=== PATIENT | female | born 1960 | race Caucasian/White ===

== ENCOUNTER 2019-03-13 11:19 | Outpatient (CLI) | payer OTHER ==
--- NOTE | 2019-03-13 11:51 | RAD ---
CHEST 2 VIEWS: Date: 03/13/19 HISTORY: Cough. Chest pain. FINDINGS: No comparison. Cardiac silhouette and pulmonary vasculature are unremarkable. Mediastinum is midline. No confluent a ir space consolidation, pneumothorax, or pleural fluid are evident. Left lateral costophrenic angle i s excluded from the image. IMPRESSION: No active cardiopulmonary abnormalities are demonstrated. POS: CET
== END 2019-03-13 11:20 | disposition home or self-care (01) ==
LOC: BICRAD 11:19
PROVIDERS: ATTEND Physician Assistant Medical
DX: K21.9 Gastro-esophageal reflux disease without esophagitis (principal); R05 Cough; K80.20 Calculus of gallbladder without cholecystitis without obstruction
CPT/HCPCS: 71046

== ENCOUNTER 2020-01-13 06:35 | Outpatient (CLI) | payer BC ==
[2020-01-13 17:23] LABS: #Eosinphils 0.1 thou/uL (0.0-0.7); #Lymphocytes 2.2 thou/uL (1.20-3.40); #Monocytes 0.8 thou/uL (0.11-0.59); #Neutrophils 10.4 thou/uL (1.40-6.50); %Basophils 0.2 % (0.0-1.0); %Eosinophils 0.7 % (0.0-10.0); %Lymphocytes 16.3 % (21.0-51.0); %Monocytes 5.9 % (0.0-10.0); %Neutrophils 77.1 % (42.0-75.0); Hemoglobin 13.2 g/dL (12.0-16.0); Mean Corpuscular HGB CONC 34.8 g/dL (32.0-36.0); Mean Corpuscular Hemoglobin 29.2 pg (27.0-31.0); Mean Corpuscular Volume 83.9 fL (78.0-98.0); Mean Platelet Volume 6.6 fL (7.4-10.4); Platelet Count 300 thou/uL (130-400); RBC Distribution Width 14.1 % (11.5-14.5); Red Blood Cell (RBC) Count 4.51 mill/uL (4.20-5.40); White Blood Cell (WBC) Count 13.5 thou/uL (4.8-10.8)
[2020-01-13 17:43] LABS: ALT (SGPT) 42 U/L (8-55); AST (SGOT) 28 U/L (5-34); Albumin 4.4 g/dL (3.5-5.0); Alkaline Phosphatase 58 U/L (40-110); Anion Gap 17 mmol/L (10-20); BUN (Urea Nitrogen) 17 mg/dL (9.8-20.1); Bilirubin, Total 0.5 mg/dL (0.2-1.2); Calc. Creatinine Clearance 0 mL/min (70-130); Calcium 9.4 mg/dL (7.8-10.44); Carbon Dioxide 24 mmol/L (22-29); Chloride 101 mmol/L (98-107); Estimated GFR-MDRD 65; Globulin 3.1 g/dL (2.4-3.5); Glucose 205 mg/dL (70-105); Potassium 3.6 mmol/L (3.5-5.1); Protein, Total 7.5 g/dL (6.0-8.3); Sodium 138 mmol/L (136-145)
--- NOTE | 2020-01-16 08:21 | EKG ---
Test Reason : Blood Pressure : / mmHG Vent. Rate : 080 BPM Atrial Rate : 080 BPM P-R Int : 154 ms QRS Dur : 076 ms QT Int : 380 ms P-R-T Axes : 066 078 038 degrees QTc Int : 438 ms Normal sinus rhythm Cannot rule out Anterior infarct , age undetermined Abnormal ECG No previous ECGs available Confirmed by DR. Alfredo CABA ([id number]) on 01/16/2020 8:21:03 AM Referred By: [facility] Confirmed By:DR. Alfredo CABA
== END 2020-01-13 06:36 | disposition home or self-care (01) ==
LOC: LABBT 06:35
PROVIDERS: ATTEND Surgery
DX: Z01.818 Encounter for other preprocedural examination (principal); D17.9 Benign lipomatous neoplasm, unspecified
CPT/HCPCS: 80053; 85025; 93005; 93010

== ENCOUNTER 2020-01-22 07:40 | Day surgery (SDC) | payer BC ==
[2020-01-13 16:21] VITALS: BMI 36.3
--- NOTE | 2020-01-22 07:37 | HP ---
CHIEF COMPLAINT: Lipoma of right deltoid. HISTORY: This is a 59-year-old female with 3-year history of enlarging mass to right deltoid, which is causing pain. MRI shows it to be an intramuscular multilobular lipoma. PAST MEDICAL HISTORY: Seasonal allergies, back problems, diabetes, renal insufficiency, hypothyroidism, hypertension, reflux, hyperlipidemia, and obesity. PAST SURGICAL HISTORY: section in 1984, tonsillectomy in 1968, thyroid surgery, colonoscopy, and hysterectomy. FAMILY HISTORY: Heart disease, diabetes. SOCIAL HISTORY: She is . No tobacco. Occasional alcohol. ALLERGIES: TO SIMVASTATIN AND TETRACYCLINE. PHYSICAL EXAMINATION: VITAL SIGNS: Height 63, weight 205, and body mass index 36.3. GENERAL: Well-developed, well-nourished female, in no apparent distress. HEENT: Unremarkable. LUNGS: Clear. HEART: Regular rate and rhythm. ABDOMEN: Soft, nontender. Good bowel sounds. No masses or hernias. EXTREMITIES: 8 x 8 cm firm mass, right deltoid. ASSESSMENT: Enlarging lipoma, right deltoid mass. PLAN: Excision. CONSENT: I have discussed planned procedure as well as risk of bleeding, infection, and recurrence. She understands and gives informed consent. Job ID: [id number]
[2020-01-22] MEDS ORDERED: Bupivacaine 0.25% HCL 30 ML VIAL ONE (08:58)
[2020-01-22] MEDS ORDERED: Lidocaine 1% w/Epinephrine 1:100K 20 ML VIAL ONE (08:58)
[2020-01-22] MEDS ORDERED: Fentanyl 100 MCG/2 ML VIAL ONE ×3 (09:00→10:45)
[2020-01-22] MEDS ORDERED: Midazolam HCl 2 mg/2 ml Vial ONE (09:12)
[2020-01-22] MEDS ORDERED: Ketorolac Tromethamine 30 MG/ML VIAL ONE (10:14)
[2020-01-22] MEDS ORDERED: Rocuronium Bromide 10 MG/ML (10ML VIAL) ONE (10:14)
[2020-01-22] MEDS ORDERED: PROPOFOL 200 MG/20 ML VIAL ONE (10:14)
[2020-01-22] MEDS ORDERED: Dexamethasone 20 MG/5 ML VIAL ONE (10:14)
[2020-01-22] MEDS ORDERED: Lidocaine 1% PF 5 ML VIAL ONE (10:14)
[2020-01-22] MEDS ORDERED: Ondansetron PF 4 MG/2 ML Vial ONE (10:14)
[2020-01-22] MEDS ORDERED: Succinylcholine Chloride 20 MG/ML 10 ml SYRINGE FS ONE (10:14)
[2020-01-22] MEDS ORDERED: HYDROcodone/Acetaminophen 5/325 mg Tablet ONE (12:03)
--- NOTE | 2020-01-22 14:58 | OP ---
DATE OF PROCEDURE: 01/22/2020 PREOPERATIVE DIAGNOSIS: Deep intramuscular lipoma, right deltoid. PROCEDURE PERFORMED: Excisional biopsy. INDICATIONS: This is a 59-year-old female with an enlarging painful soft tissue mass of the right deltoid. MRI shows it to be intramuscular. FINDINGS: Very deep. It was all the way down to the humerus. It was an 8 cm x 6 cm deep intramuscular lipoma. DESCRIPTION OF PROCEDURE: After informed consent was obtained, the patient was taken to the operating room, given general endotracheal anesthesia. She was placed in the left lateral decubitus position. Her shoulder was prepped and draped in usual fashion. Local anesthesia was infiltrated subcutaneously and deep and a longitudinal incision was performed, subcu divided sharply. The muscle fascia was incised. The muscle fibers were until I found the capsule lipoma. I had enlarged the incision due to the depth of this and the size of this lipoma. Then, using digital dissection, the lipoma was dissected out circumferentially and then reduced. Its pedicle was ligated with a clamp and tied with 3-0 Vicryl suture. It was sent to Pathology for further analysis. Hemostasis was assured. A drain was placed and brought out anteriorly and placed subfascially down into the cavity. Then, the fascia was closed with interrupted 2-0 Vicryl suture. Hemostasis was assured. Subcu reapproximated with interrupted 3-0 Vicryl and the skin closed with a running subcuticular 4-0 Rapide. Steri-Strips applied. Sterile bandage applied. The patient tolerated the procedure well, transferred to Recovery in good condition. Sponge and needle count verified correct x2. Job ID: [id number]
== END 2020-01-22 14:14 | disposition home or self-care (01) ==
LOC: SDC 07:40
PROVIDERS: ATTEND Surgery
PROC: 0KB50ZZ Excision of Right Shoulder Muscle, Open Approach (ICD-10-PCS; principal; 2020-01-22)
DX: D17.79 Benign lipomatous neoplasm of other sites (principal); J30.2 Other seasonal allergic rhinitis; E11.9 Type 2 diabetes mellitus without complications; E03.9 Hypothyroidism, unspecified; K21.9 Gastro-esophageal reflux disease without esophagitis; E78.5 Hyperlipidemia, unspecified; I10 Essential (primary) hypertension; G43.909 Migraine, unspecified, not intractable, without status migrainosus; F17.200 Nicotine dependence, unspecified, uncomplicated; F41.9 Anxiety disorder, unspecified; E66.9 Obesity, unspecified; Z68.36 Body mass index [BMI] 36.0-36.9, adult; Z79.52 Long term (current) use of systemic steroids; Z79.84 Long term (current) use of oral hypoglycemic drugs; Z79.899 Other long term (current) drug therapy; Z88.1 Allergy status to other antibiotic agents; Z88.8 Allergy status to other drugs, medicaments and biological substances
CPT/HCPCS: 88304; J0690; J1100; J1885; J2001; J2250; J2405; J2704; J3010; S0020

== ENCOUNTER 2020-08-05 07:54 | Outpatient (CLI) | payer BC ==
--- NOTE | 2020-08-05 08:35 | ULT ---
US Abdominal: 08/05/2020 7:59 AM CLINICAL HISTORY: Abdominal pain with reflux and nausea. STUDY: Complete abdominal ultrasound COMPARISON: None. FINDINGS: Liver: Size: Normal. Echogenicity: Hyperechoic consistent with hepatic steatosis. Contour: Smooth. Mass: None. Common bile duct: 6 mm Gallbladder: There is a small nonshadowing echogenic focus in the gallbladder neck. This could repres ent a nonshadowing stone or small polyp. Pancreas: Head, body, and tail appear normal. Inferior vena cava: Normal in caliber Aorta: Normal in caliber Spleen: No focal lesions. Spleen measuring 16.9 cm in length. Right kidney: No pelvicalyceal dilatation. Right kidney measuring 12.0 cm in length. Left kidney: No pelvicalyceal dilatation. Left kidney measuring 13.0 cm in length. IMPRESSION: 1. Fatty liver 2. Splenomegaly 3. Possible nonshadowing stone versus polyp in the gallbladder neck
== END 2020-08-05 07:55 | disposition home or self-care (01) ==
LOC: SCSULT 07:54
PROVIDERS: ATTEND Physician Assistant Medical
DX: K21.9 Gastro-esophageal reflux disease without esophagitis (principal); R11.0 Nausea; R19.4 Change in bowel habit; K76.0 Fatty (change of) liver, not elsewhere classified; R16.1 Splenomegaly, not elsewhere classified
CPT/HCPCS: 93975

== ENCOUNTER 2020-10-27 08:29 | Outpatient (CLI) | payer BC ==
--- NOTE | 2020-10-27 10:55 | NM ---
HEPATOBILIARY SCAN: HISTORY:Epigastric pain RADIOPHARMACEUTICAL: 5 mCi Technetium 99m Mebrofenin injected intravenously FINDINGS: There is normal tracer extraction by the liver with normal excretion into the biliary tracts and smal l bowel loops and normal filling of the gallbladder. The calculated gallbladder ejection fraction following an intravenous infusion of 1.8 mcg CCK-8 measu res 41%. IMPRESSION:Normal exam.
== END 2020-10-27 08:30 | disposition home or self-care (01) ==
LOC: NM 08:29
PROVIDERS: ATTEND Internal Medicine Gastroenterology
DX: Z12.11 Encounter for screening for malignant neoplasm of colon (principal); K80.20 Calculus of gallbladder without cholecystitis without obstruction; R10.13 Epigastric pain; R19.4 Change in bowel habit; R93.3 Abnormal findings on diagnostic imaging of other parts of digestive tract; R94.5 Abnormal results of liver function studies; R05 Cough; F32.9 Major depressive disorder, single episode, unspecified; E11.9 Type 2 diabetes mellitus without complications; L40.9 Psoriasis, unspecified; R74.01 Elevation of levels of liver transaminase levels; F41.9 Anxiety disorder, unspecified; F34.1 Dysthymic disorder
CPT/HCPCS: 78227; A9537

== ENCOUNTER 2022-01-07 14:44 | Outpatient (CLI) | payer BC | END 2022-01-07 14:45 | disposition home or self-care (01) | LOC: BICMAMMO 14:44 | PROVIDERS: ATTEND Obstetrics & Gynecology | DX: Z12.31 Encounter for screening mammogram for malignant neoplasm of breast (principal); Z80.3 Family history of malignant neoplasm of breast; Z91.89 Other specified personal risk factors, not elsewhere classified | CPT/HCPCS: 77063; 77067 ==

== ENCOUNTER 2022-05-18 10:49 | Outpatient (CLI) | payer BC | END 2022-05-18 10:50 | disposition home or self-care (01) | LOC: CTENTCT 10:49 | PROVIDERS: ATTEND Specialist | DX: J32.9 Chronic sinusitis, unspecified (principal) | CPT/HCPCS: 70486 ==